=== PATIENT | female | born 1950 | race Caucasian/White ===

== ENCOUNTER 2016-12-26 00:45 | Emergency (ER) | payer MEDICARE, OTHER ==
[2016-12-26 01:02] VITALS: RESP 16; TEMP 98.1; O2SAT 98
[2016-12-26] MEDS ORDERED: Sodium Chloride 0.9% 1,000 ML IV ONE (01:20)
--- NOTE | 2016-12-26 01:20 | C.PDOC ---
History Of Present Illness 66 year-old female, PMHx includes Hypertension, gastritis, and Anxiety, presents to the emergency department with complaints of epigastric pain that radiates to the back that occurred tonight. Patient notes taking OTC acid saturator medication for pain, but to no relief. Patient then reports started feeling anxious, developed a headache, and presented to the emergency department. Patient reports nausea but denies dizziness, chest pain, SOB, vomiting, fever, chills, diarrhea, or any other complaints. Time Seen by Provider: 12/26/16 01:08 Chief Complaint (Nursing): Abdominal Pain History Per: Patient History/Exam Limitations: no limitations Onset/Duration Of Symptoms: Hrs Current Symptoms Are (Timing): Still Present Severity: Mild Location Of Pain/Discomfort: Epigastric Associated Symptoms: Nausea, Other (Anxiety). denies: Fever, Chills, Vomiting, Chest Pain Past Medical History Reviewed: Historical Data, Nursing Documentation, Vital Signs Vital Signs: Last Vital Signs Temp 98.1 F 12/26/16 03:15 Pulse 79 12/26/16 03:15 Resp 16 12/26/16 03:15 BP 137/92 H 12/26/16 03:15 Pulse Ox 98 12/26/16 04:08 - Medical History PMH: Anxiety, HTN Denies: Chronic Kidney Disease Family History: States: Unknown Family Hx - Social History Hx Alcohol Use: Yes Hx Substance Use: No - Immunization History Hx Tetanus Toxoid Vaccination: Yes Hx Influenza Vaccination: Yes Hx Pneumococcal Vaccination: No Review Of Systems Constitutional: Negative for: Fever, Chills Cardiovascular: Negative for: Chest Pain Respiratory: Negative for: Shortness of Breath Gastrointestinal: Positive for: Nausea. Negative for: Vomiting, Diarrhea Neurological: Positive for: Headache. Negative for: Weakness, Numbness, Dizziness Physical Exam - Physical Exam Appears: Non-toxic, No Acute Distress Skin: Warm, Dry Head: Atraumatic, Normacephalic Eye(s): bilateral: Normal Inspection, EOMI Nose: Normal Oral Mucosa: Moist Neck: Normal ROM Chest: Symmetrical Cardiovascular: Rhythm Regular, No Murmur Respiratory: Normal Breath Sounds, No Rales, No Rhonchi, No Wheezing Gastrointestinal/Abdominal: Soft, No Tenderness Back: Normal Inspection, No Paraspinal Tenderness Extremity: Bilateral: Atraumatic, Normal Color And Temperature, Normal ROM Neurological/Psych: Oriented x3, Normal Speech Gait: Steady ED Course And Treatment - Laboratory Results Result Diagrams: 12/26/16 01:43 12/26/16 01:43 Lab Interpretation: No Acute Changes ECG: Interpreted By Me, Viewed By Me (Dr Navarro) ECG Rhythm: Sinus Rhythm ECG Interpretation: No Acute Changes Rate From EC O2 Sat by Pulse Oximetry: 98 (Room air) Pulse Ox Interpretation: Normal - Other Rad obstructive series X-Ray: Interpreted by Me, Viewed By Me Interpretation: normal chest, no acute disease. no signs of obstruction, no free air Medical Decision Making Medical Decision Making: Impression: 66 y.o female with epigastric abdominal pain Plan: * EKG * Labs * IV NS, Pepcid Progress: EKG obtained and reviewed showing NS at 90 bpm with normal axis and no ST-T changes. Labs reviewed and unremarkable. Upon reevaluation patient resting comfortably in no acute distress and reports feeling better, abdominal pain has improved. Explain all results to patient and provide copy of labs. She feels comfortable going home and will be discharged and instructed to follow up with DR Ruiz Disposition Counseled Patient/Family Regarding: Diagnosis, Need For Followup, Rx Given - Disposition Referrals: Charanjit Ruiz MD [Medical Doctor] - Disposition: HOME/ ROUTINE Disposition Time: 03:10 Condition: STABLE Additional Instructions: Follow up with your primary medical doctor or clinic in 2-5 days for further evaluation. Return to the emergency department at any time if symptoms persist or worsen. Instructions: Anxiety (ED), Gastritis (DC) - POA Present On Arrival: None - Clinical Impression Clinical Impression: Gastritis, Anxiety - Scribe Statement The provider has reviewed the documentation as recorded by the Scribbla palmer All medical record entries made by the Scribe were at my direction and personally dictated by me. I have reviewed the chart and agree that the record accurately reflects my personal performance of the history, physical exam, medical decision making, and the department course for this patient. I have also personally directed, reviewed, and agree with the discharge instructions and disposition.
[2016-12-26] MEDS ORDERED: Sodium Chloride 0.9% 1,000 ML ONE (01:26)
[2016-12-26 01:46] LABS: BASO # 0.1 K/uL (0.0-0.2); EOS # 0.1 K/uL (0.0-0.7); EOS % 1.9 % (0.0-4.0); HEMATOCRIT 38.7 % (34.0-47.0); LYMPH # 1.9 K/uL (1.0-4.3); LYMPH % 34.4 % (20.0-40.0); MEAN CELL VOLUME 89.9 fL (81.0-99.0); MEAN CORPUSCULAR HEMOGLOBIN 29.8 pg (27.0-31.0); MEAN CORPUSCULAR HGB CONC 33.2 g/dL (33.0-37.0); MEAN PLATELET VOLUME 7.2 fL (7.2-11.7); MONO # 0.4 K/uL (0.0-0.8); MONO % 6.5 % (0.0-10.0); RED CELL DISTRIBUTION WIDTH 13.3 % (11.5-14.5); WHITE BLOOD COUNT 5.4 K/uL (4.8-10.8)
[2016-12-26 01:55] LABS: CHLORIDE 98 mmol/L (98-107)
[2016-12-26 01:56] LABS: POTASSIUM 3.8 mmol/L (3.6-5.2); SODIUM 141 mmol/L (132-148)
[2016-12-26 01:58] LABS: ALB/GLOB RATIO 1.2 (1.0-2.1); ALKALINE PHOSPHATASE 68 U/L (38-126); ALT/SGPT 27 U/L (9-52); AST/SGOT 32 U/L (14-36); BILIRUBIN,TOTAL 0.5 mg/dL (0.2-1.3); BLOOD UREA NITROGEN 12 mg/dL (7-17); CARBON DIOXIDE 26 mmol/L (22-30); GFR AFRICAN-AMERICAN > 60; GLUCOSE,RANDOM 74 mg/dL (65-105); TOTAL PROTEIN 8.3 g/dL (6.3-8.3)
[2016-12-26 01:59] LABS: CALCIUM 9.1 mg/dl (8.6-10.4)
[2016-12-26 02:46] LABS: URINE BACTERIA RARE (<OCC); URINE BILIRUBIN NEGATIVE (NEGATIVE); URINE BLOOD NEGATIVE (NEGATIVE); URINE COLOR Colorless (YELLOW); URINE GLUCOSE (UA) NORMAL (Normal); URINE KETONE NEGATIVE (NEGATIVE); URINE PROTEIN NEGATIVE (NEGATIVE); URINE UROBILINOGEN NORMAL mg/dL (0.2-1.0); WBC URINE 1 /hpf (0-5)
[2016-12-26 02:48] LABS: URINE LEUKOCYTE ESTERASE NEGATIVE Leu/uL (Negative)
[2016-12-26 03:39] VITALS: BP 137/92; PULSE 79
--- NOTE | 2016-12-26 15:21 | RAD ---
PROCEDURE: Radiographs of the chest and abdomen (obstructive series) HISTORY: abd pain COMPARISON: No prior. TECHNIQUE: AP radiograph of the chest, with upright and supine radiographs of the abdomen. FINDINGS: CHEST: Lungs: Clear. Cardiovascular: Normal size heart. No pulmonary vascular congestion. Pleura: No pleural fluid. No pneumothorax. Other findings: None. ABDOMEN AND PELVIS: Bowel: Unremarkable bowel gas pattern. No evidence of mechanical obstruction. Free air: None. Bones: Unremarkable. Other findings: None. IMPRESSION: Unremarkable radiographs of chest and abdomen. No evidence of mechanical bowel obstruction.
== END 2016-12-26 03:15 | disposition home or self-care (01) ==
LOC: C.ER 00:45
DX: K29.70 Gastritis, unspecified, without bleeding (principal); F41.9 Anxiety disorder, unspecified
CPT/HCPCS: 74022; 80053; 81001; 83690; 85025; 93005; 96361; 96374; 96375; 99284; J2405; J7040